=== PATIENT | male | born 1940 | race Caucasian/White ===

== ENCOUNTER 2023-07-24 12:51 | Outpatient (CLI) | payer MEDICARE ==
--- NOTE | 2023-07-24 19:57 | XRAY Report ---
PROCEDURE: Shoulder 2 View RT INDICATIONS: RT SHLDR PAIN TECHNIQUE: 4 views of the shoulder were acquired. COMPARISON: None. FINDINGS: Bones: No acute fractures or dislocations. No suspicious bony lesions. Visualized ribs appear inta ct. Moderate acromioclavicular joint osteoarthrosis. No cervical rib is seen. Milder changes are seen in the glenohumeral joint. Soft tissues: No suspicious soft tissue calcifications. The visualized lungs are within normal limi ts. IMPRESSION: No acute osseous abnormality. 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 Reviewed by: Stoney Biswas MD on 07/24/2023 7:56 PM PDT Approved by: Stoney Biswas MD on 07/24/2023 7:56 PM PDT Station ID: [id number]
--- NOTE | 2023-07-24 19:58 | XRAY Report ---
PROCEDURE: Chest 2 View X-Ray INDICATIONS: VENOUS OBSTRUCTION AT THORACIC OUTLET TECHNIQUE: 2 views of the chest were acquired. COMPARISON: None. FINDINGS: Surgical changes and devices: None. Lungs and pleura: No pleural effusions or pneumothorax. Lungs are clear. Mediastinum: Mediastinal contours appear normal. Heart size is normal. Bones and chest wall: No suspicious bony lesions. Overlying soft tissues appear unremarkable. No cervical ribs or osseous mass identified. IMPRESSION: No acute cardiopulmonary process. No cervical ribs. Reviewed by: Stoney Biswas MD on 07/24/2023 7:57 PM PDT Approved by: Stoney Biswas MD on 07/24/2023 7:57 PM PDT Station ID: [id number]
== END 2023-07-24 12:52 | disposition home or self-care (01) ==
LOC: DI.S 12:51
PROVIDERS: ATTEND Orthopaedic Surgery
DX: M19.011 Primary osteoarthritis, right shoulder (principal); I87.1 Compression of vein

== ENCOUNTER 2024-03-24 12:19 | Outpatient (CLI) | payer MEDICARE ==
[2024-03-24 14:17] LABS: ESTIMATED AVERAGE GLUCOSE 114 mg/dL (70-100); HEMOGLOBIN A1c% 5.6 % (4.27-6.07)
[2024-03-24 14:23] LABS: CALCIUM 9.9 mg/dL (8.5-10.3); CREATININE 0.9 mg/dL (0.6-1.3); POTASSIUM 4.4 mmol/L (3.5-4.5)
== END 2024-03-24 12:20 | disposition home or self-care (01) ==
LOC: LAB.S 12:19
PROVIDERS: ATTEND Internal Medicine
DX: M79.641 Pain in right hand (principal); R97.20 Elevated prostate specific antigen [PSA]; R73.9 Hyperglycemia, unspecified
CPT/HCPCS: 36415; 80048; 83036; 84153